=== PATIENT | female | born 1975 | race Caucasian/White ===

== ENCOUNTER 2017-08-29 09:54 | Outpatient (CLI) | payer MEDICAID ==
[~2017-08-29] VITALS: Ht 162.6 cm; Wt 82.0 kg
[2017-08-29 10:10] VITALS: BP 128/72; PULSE 65; Ht 162.6 cm; Wt 82.0 kg
[2017-08-29] MEDS ORDERED: PNV11TAB PO (10:12)
[2017-08-29] MEDS: LACTATED RINGER'S 1,000 ML IV SCH ×2 (10:25→13:57)
--- NOTE | 2017-08-29 14:30 | RADRPT ---
PROCEDURE: US OB. CLINICAL INDICATION: Low GAYLE TECHNIQUE: Transabdominal views of the pelvis are available for review. COMPARISON: None. FINDINGS: There is a single intrauterine gestation in a vertex position. The heart rate is present at 148 bpm. The placenta is left lateral in location. There is no evidence of placenta previa or a placental ab ruption. The GAYLE measures 14.2 cm. RPTAT: AA IMPRESSION: Normal GAYLE. Physician Kaylynn Date Time Electronically viewed and signed by Physician Kaylynn on 08/29/2017 14:30 RA/
--- NOTE | 2017-08-29 16:40 | CONS ---
Date/Time of Note Date/Time of Note DATE: 08/29/17 TIME: 16:31 Consultation Date/Type/Reason Admit Date/Time August 29, 2017 OB triage consult this patient is a 41 years old 5 para 3 1, with estimated date of confinement of September 14, 2017 which makes her 37 weeks and followed days today. She was basically referred to the OB triage due to oligohydramnios with amniotic fluid index level of 6.3 cm this morning On physical examination she is a well-developed well-nourished lady somewhat overweight body weight 82 kg her vital signs were basically normal with blood pressure 128/72 pulse rate 65 respiration 18 temperature 97.9. On physical examination she did not have any abnormal finding the abdomen was soft heart tone was normal heart tracing appears to be normal with no decelerations fairly good variability and accelerations no evidence of a true contractions no CVA tenderness Current Medications Medications (Trade) Dose Ordered Sig/Gabriel Route PRN Reason Start Time Stop Time Status Last Admin Dose Admin Lactated Ringer's (Lr) 1,000 ml @ 250 mls/hr Q4H IV 08/29/17 10:30 08/29/17 16:21 DC 08/29/17 13:57 250 MLS/HR Constitutional: chills, diaphoresis, disoriented, febrile, improved, no complaints, other, poor po, requiring IVF, requiring O2 Eyes: No discharge, No no complaints, No other, No pain, No redness, No visual change ENT: No bleeding, No congestion, No discharge, No dysphagia, No no complaints, No other, No pain, No sore throat Respiratory: No cough, No no complaints, No other, No pain, No pleuritic pain, No shortness of breath, No sputum, No wheezing Cardiovascular: No chest pain, No edema, No lightheadedness, No no complaints, No orthopenea, No other, No palpitations, No paroxysmal nocturnal dyspnea Gastrointestinal: No blood, No constipation, No decreased appetite, No diarrhea , No flatus, No nausea, No no complaints, No other, No pain, No passing stool, No vomiting Genitourinary: No bleeding, No discharge, No dysuria, No flank pain, No hematuria, No no complaints, No other Musculoskeletal: No back pain, No bone/joint pain, No neck pain, No no complaints, No other, No restricted range of motion, No swelling Skin: No bruising, No erythema, No laceration, No no complaints, No other, No pruritis, No rash, No skin lesions Neurologic: No confusion, No dizziness, No focal-weakness, No headache, No no complaints, No other, No seizure, No syncope Additional Comments In the hospital she was received IV hydration here volume was measured after hydration and the result was 14.2 cm With improved condition of the patient she was discharged home to rest and drink plenty of fluid and will return here tomorrow to repeat the GAYLE to make sure the baby is steadily in good condition Exam/Review of Systems Vital Signs Vitals Vital Signs Date Time Temp Pulse Resp B/P Pulse Ox O2 Delivery O2 Flow Rate FiO2 08/29/17 10:10 97.9 65 128/72 NICHOL REGALADO MD Aug 29, 2017 16:40
--- NOTE | 2017-08-29 16:49 | TRIAGE ---
OB Triage Datetime Report Generated by CPN: 08/29/2017 16:49 Datetime: 08/29/2017 15:46 Stage of : OB Triage Datetime: 08/29/2017 15:17 Labor Evaluation Frequency: 0 Monitor Mode: External Resting Tone Fortun[place]: Relaxed Heart Rate FHR Baseline Rate: 135 Monitor Mode: External US Variability: Moderate 6-25 bpm Accelerations: 10X10 Decelerations: None Category: Category I Pain Assessment Pain Scale: 0 Pain Presence: None/Denies Pain Type: N/A Pain Goal: 3 Pain Relief Measures: Comfort Measures Datetime: 08/29/2017 13:54 Labor Evaluation Frequency: X1 Monitor Mode: External Duration (sec)2399: 50 Pattern: Normal: <= 5 Contractions in 10 Minutes Resting Tone [place]: Relaxed Heart Rate FHR Baseline Rate: 135 Monitor Mode: External US Variability: Moderate 6-25 bpm Decelerations: None Category: Category I Pain Assessment Pain Scale: 0 Pain Presence: None/Denies Pain Type: N/A Pain Goal: 3 Pain Relief Measures: Comfort Measures Datetime: 08/29/2017 13:06 Labor Evaluation Frequency: occas Monitor Mode: External Duration (sec)2399: 40-60 Resting Tone [place]: Relaxed Heart Rate FHR Baseline Rate: 140 Monitor Mode: External US Variability: Moderate 6-25 bpm Accelerations: 10X10 Decelerations: None Category: Category I Pain Assessment Pain Scale: 2 Pain Presence: None/Denies Pain Type: N/A Pain Goal: 3 Pain Relief Measures: Comfort Measures Datetime: 08/29/2017 12:10 Labor Evaluation Frequency: OCCAS Monitor Mode: External Duration (sec)2399: 50-70 Pattern: Normal: <= 5 Contractions in 10 Minutes Resting Tone [place]: Relaxed Heart Rate FHR Baseline Rate: 135 Monitor Mode: External US Variability: Moderate 6-25 bpm Accelerations: 10X10 Decelerations: None Category: Category I Pain Assessment Pain Scale: 0 Pain Presence: None/Denies Pain Type: N/A Pain Goal: 3 Pain Relief Measures: Comfort Measures Datetime: 08/29/2017 11:04 Labor Evaluation Frequency: 5-8 Monitor Mode: External Duration (sec)2399: 50-80 Pattern: Normal: <= 5 Contractions in 10 Minutes Resting Tone [place]: Relaxed Heart Rate FHR Baseline Rate: 135 Monitor Mode: External US Variability: Moderate 6-25 bpm Accelerations: 10X10 Decelerations: None Category: Category I Pain Assessment Pain Scale: 2 Pain Presence: Intermittent Pain Type: Cramping Pain Location: Abdomen Pain Goal: 3 Pain Relief Measures: Comfort Measures Datetime: 08/29/2017 10:06 Stage of : OB Triage Assessment Type: Triage Maternal Assessment Level of Consciousness: Fully Conscious DTR's/Clonus: DTRs 2+; No Clonus Headache: Denies Blurred Vision: No Respiratory Effort: Unlabored; Regular Rhythm; Equal Expansion Breath Sounds, Left: Clear and Equal Breath Sounds, Right: Clear and Equal Nausea/Vomiting: Denies RUQ Epigastric Pain: Denies Facial Edema: None Temperature Route: Axillary Fall Risk Assessment History of Falling: (0) No Secondary Diagnosis: (0) No Ambulatory Aid: (0) Bedrest/Nurse Assist IV Therapy: (0) No Gait: (0) Normal/Bedrest/Immobile Mental Status: (0) Oriented to Own Ability Fall Score: 0 Fall Risk Score Definition: No Risk: No action required Labor Evaluation Frequency: 0 Monitor Mode: External Pattern: Normal: <= 5 Contractions in 10 Minutes Resting Tone [place]: Relaxed Heart Rate FHR Baseline Rate: 145 Monitor Mode: External US Variability: Moderate 6-25 bpm Accelerations: 10X10 Decelerations: None Pain Assessment Pain Scale: 0 Pain Presence: None/Denies Pain Type: N/A Pain Goal: 3 Pain Relief Measures: Comfort Measures Datetime: 08/29/2017 10:04 Time of Arrival: 08/29/2017 09:51 EGA: 37.5 Arrived By: Ambulatory Arrived From: Other Unit in Hospital Chief Complaint: FROM NST FOR IV HYDRATION GAYLE 6.3 Movement: Present Contractions: Denies/Absent Rupture of Membranes: Denies Vaginal Bleeding: None Vaginal Discharge: Denies Recent Sexual Intercouse: Denies Abdominal Trauma: Not Applicable Patient Complaints: None Time Provider Notified: 08/29/2017 15:50 Provider Notified: FABRICIO Initial Plan: monitor, iv hydration, repeat gayle
--- NOTE | 2017-08-30 11:12 | NSTRPT ---
NST Information Datetime Report Generated by CPN: 08/30/2017 11:12 Datetime: 08/29/2017 08:19 NST Information EGA: 37.5 Test Number: 4 Time on Monitor: 08/29/2017 08:53 Time off Monitor: 08/29/2017 09:21 NST Duration (Min): 28 Reason for NST: Other Reason for NST Other: AMA Test and Monitor Explained: Monitor Explained; Test Explained; Verbalized Understanding Pulse: 67 Resp: 16 SBP: 109 DBP: 60 Test Evaluation NST Interventions: Reposition Patient Patient States Movement: Present Contraction Frequency: X1, denies FHR Baseline : 140 Variability: Moderate 6-25bpm Accelerations: 15X15 Decelerations: None FHR Category: Category I NST Results: Reactive Comments: To Perinatology, GAYLE 6.5cm, cephalic EFW 3420gms (66%), AC 95% 919-Report to Dr Esquivel, recommends IV hydration. 924-Report called to Dr Corrigan, inc Dr Esquivel's recommendation. Orders received for IV Hydration and repeat GAYLE. POC explained to pt, states unders tanding and denies further questions at this time. Pt to Triage, with follow up NST appt for 09/02 at 0800 Electronically Signed By E-Signature: with User ID: [id number] Datetime: 08/27/2017 08:06 NST Information EGA: 37.3 Test Number: 3 Time on Monitor: 08/27/2017 08:29 Time off Monitor: 08/27/2017 09:01 NST Duration (Min): 32 Reason for NST: Other Reason for NST Other: AMA Test and Monitor Explained: Monitor Explained; Test Explained; Verbalized Understanding Pulse: 76 Resp: 18 SBP: 112 DBP: 64 Test Evaluation NST Interventions: Reposition Patient Patient States Movement: Present Contraction Frequency: X3(denies) FHR Baseline : 150 Variability: Moderate 6-25bpm Accelerations: 15X15 Decelerations: None FHR Category: Category I NST Results: Reactive Comments: To u/s. GAYLE 10.3cm. CEPHALIC. 0906-Pt home undelivered with labor precautions, kick count instructions reviewed and follo w up NST appt given. States understanding and denies further questions at this time. Electronically Signed By E-Signature: with User ID: [id number] Datetime: 08/23/2017 08:10 NST Information EGA: 36.6 NST Duration (Min): 37 Datetime: 08/20/2017 13:36 NST Information EGA: 36.3 Datetime: 08/20/2017 13:12 NST Duration (Min): 37
[2017-08-30] MEDS ORDERED: FERR256T PO (19:54)
== END 2017-08-29 16:21 | disposition home or self-care (01) ==
LOC: L-D 09:54 → OBT 09:54
PROVIDERS: ATTEND Obstetrics & Gynecology
DX: O41.03X0 Oligohydramnios, third trimester, not applicable or unspecified (principal); Z3A.37 37 weeks gestation of pregnancy
CPT/HCPCS: 36415; 76815; 96360; 96361; G0463; J7120

== ENCOUNTER 2017-08-30 19:21 | Outpatient (CLI) | payer MEDICAID ==
[~2017-08-30] VITALS: Ht 162.6 cm; Wt 83.0 kg
[~2017-08-30 19:21] MED LIST: PNV11TAB PO
[2017-08-30 19:49] VITALS: Ht 162.6 cm; Wt 83.0 kg
[2017-08-30 19:50] VITALS: BP 126/67; PULSE 88; RESP 18
[2017-08-30] MEDS ORDERED: FERR256T PO (19:54)
--- NOTE | 2017-08-30 21:29 | RADRPT ---
PROCEDURE: Obstetrical ultrasound greater than 14 weeks CLINICAL INDICATION: Low amniotic fluid index TECHNIQUE: Real time sonographic imaging of the gravid uterus is performed transabdominally and mu ltiple static sales scale and Doppler images are submitted for review as are measurements. The image s are reviewed on the PACS. COMPARISON: 08/29/2017 FINDINGS: There is a single living intrauterine gestation in cephalic presentation. The heart beat is estimated at 166 bpm.. Placenta is left lateral and grade 2. There is no evidence of placenta previa or abruption. The amniotic fluid index is normal estimated at 14.8 cm. RPTAT:HJJR IMPRESSION: 1. Single viable intrauterine gestation with the amniotic fluid index estimated at 14.8 cm, previous ly 14.2 cm on the study from 08/29/2017. 2. Cephalic presentation. Physician Swapna Date Time Electronically viewed and signed by Physician Swapna on 08/30/2017 21:29 /
--- NOTE | 2017-08-30 22:21 | PN ---
Triage Information Date/Time Reason for visit: Oligohydramnios Weeks of Gestation 37w 6d /Para Objective Vital Signs Date Time Temp Pulse Resp B/P Pulse Ox O2 Delivery O2 Flow Rate FiO2 08/30/17 19:50 98.2 88 18 126/67 97 Room Air Heart Rate Comments reactive Contractions: >10 Minutes Apart Results/Medications Imaging Results GAYLE 14.8cm Disposition: Discharge Assessment/Plan 41 y/o at 37w 6d with h/o oligohydramnios -biweekly NST/GAYLE as scheduled -f/u with OB JOSE LUIS ULLOA Aug 30, 2017 22:21
== END 2017-08-30 22:23 | disposition home or self-care (01) ==
LOC: OBT 19:21 → L-D 19:23 → OBT 22:23
PROVIDERS: ATTEND Obstetrics & Gynecology
DX: O41.03X0 Oligohydramnios, third trimester, not applicable or unspecified (principal); Z3A.37 37 weeks gestation of pregnancy
CPT/HCPCS: 76815

== ENCOUNTER 2017-09-09 10:38 | Inpatient (IN) | payer MEDICAID ==
[~2017-09-09] VITALS: Ht 162.6 cm; Wt 84.1 kg
[~2017-09-09 10:38] MED LIST changes: +FERR256T PO
[2017-09-09] MEDS ORDERED: LACTATED RINGER'S 1,000 ML IV SCH (11:09)
[2017-09-09 11:14] VITALS: BP 134/74; PULSE 70; RESP 18; Ht 162.6 cm; Wt 84.1 kg
[2017-09-09] MEDS ORDERED: AMPICILLIN 2 GM/NS (PMX) 100 ML IV ONE (11:30)
[2017-09-09] MEDS ORDERED: OXYTOCIN 30 UNITS/LR 500 ML IV SCH ×2 (11:30)
[2017-09-09] MEDS ORDERED: MISOPROSTOL 200 MCG TAB PR PRN (11:30)
[2017-09-09] MEDS ORDERED: CARBOPROST 250 MCG INJ IM PRN (11:30)
[2017-09-09] MEDS ORDERED: LIDOCAINE 1% (MPF) 30 ML INJ INJ PRN (11:30)
[2017-09-09] MEDS ORDERED: BUTORPHANOL 2 MG INJ IV PRN (11:30)
[2017-09-09] MEDS ORDERED: METHYLERGONOVINE 0.2 MG INJ IM PRN (11:30)
[2017-09-09] MEDS ORDERED: OXYTOCIN 30 UNITS/LR 500 ML IV PRN (11:30)
[2017-09-09] MEDS ORDERED: LACTATED RINGER'S 1,000 ML IV PRN (11:30)
[2017-09-09] MEDS ORDERED: IBUPROFEN 600 MG TAB PO PRN (11:30)
[2017-09-09] MEDS ORDERED: DINOPROSTONE 10 MG VAG SUPP VAG ONE (11:45)
[2017-09-09 11:55] LABS: ABNORMAL IP MESSAGE 1; BASOPHILS % 0.5 % (0.0-2.0); EOSINOPHILS # 0.1 10^3/ul (0.0-0.5); EOSINOPHILS % 1.8 % (0.0-7.0); HEMATOCRIT 37.1 % (37.0-47.0); HEMOGLOBIN 12.3 g/dl (12.0-16.0); LYMPHOCYTES % 25.1 % (15.0-51.0); MEAN CORPUSCULAR HEMOGLOBIN 31.5 pg (29.0-33.0); MEAN CORPUSCULAR HGB CONC 33.2 g/dl (32.0-37.0); MEAN CORPUSCULAR VOLUME 94.9 fl (82.0-101.0); MEAN PLATELET VOLUME 13.3 fl (7.4-10.4); MONOCYTE # 0.6 10^3/ul (0.3-0.9); MONOCYTES % 8.2 % (0.0-11.0); NEUTROPHILS % 63.5 % (39.0-77.0); PLATELET COUNT 160 10^3/UL (140-415); RED BLOOD COUNT 3.91 10^6/ul (4.20-5.40); RED CELL DISTRIBUTION WIDTH 13.2 % (11.5-14.5); WHITE BLOOD COUNT 7.8 10^3/ul (4.8-10.8)
[2017-09-09 11:56] LABS: POSITIVE DIFF @See below
[2017-09-09] MEDS ORDERED: MINERAL OIL LIGHT 10 ML VIAL TOP PRN (12:00)
[2017-09-09 12:23] LABS: INR 0.89; PT RATIO 0.9
[2017-09-09 12:24] LABS: PARTIAL THROMBOPLASTIN TIME 29.5 Sec (25.0-35.0)
[2017-09-09] MEDS ORDERED: AMPICILLIN 1 GM/NS (PMX) 50 ML IV SCH (15:30)
[2017-09-09] MEDS ORDERED: FENTAnyl 2MCG/ML-ROPIV 0.2% 100 ML ONE (16:10)
[2017-09-09] MEDS ORDERED: TERBUTALINE 1 ML ONE (16:47)
[2017-09-09] MEDS ORDERED: ONDANSETRON 4 MG INJ IV PRN ×2 (17:00→21:30)
[2017-09-09] MEDS ORDERED: NALOXONE (0.4 MG/ML) INJ IV PRN (17:00)
[2017-09-09] MEDS ORDERED: FENTAnyl 2MCG/ML-ROPIV 0.2% 100 ML BAG EPI SCH (17:00)
[2017-09-09] MEDS ORDERED: DIPHENHYDRAMINE 50 MG INJ IV PRN (17:00)
[2017-09-09] MEDS ORDERED: TERBUTALINE 1 MG/ML INJ SC ONE (17:00)
--- NOTE | 2017-09-09 19:13 | LDN ---
Date/Time of Note Date/Time of Note DATE: 09/09/17 TIME: 19:05 Delivery Summary Normal spontaneous vaginal delivery of a baby girl from OA position shoulders delivered without any difficulty rest of the baby's body followed placenta is spontaneous expulsion inspected complete, postdelivery inspection of vagina and cervix noted bleeding from the cervix section of the cervix seems there is a laceration 9:00 to 3 cm length which repaired with 2-0 chromic catgut after this repair bleeding subsided substantially approximately 5 minutes cervix was observed and no further bleeding uterus was firm and received 0.2 mg of Methergine IM also 5 100 Cytotec rectally estimated blood loss 350-400cc he also sustained very small first-degree laceration which repaired with 3-0 chromic catgut. Weeks of Gestation 39 weeks and 2 days Placenta Delivered: Spontaneously Meconium: none Episiotomy: No Laceration repair: First-degree perineal laceration, questionable cervical laceration at 9:00 location which repaired with 2-0 chromic Anesthesia type: Epidural Estimated blood loss: 400 Sponge & Needle done & correct: Yes All needle counts correct: Yes Any foreign bodies felt in the: No Problems: Delivery Information Sex Infant Sex: female Apgars 1 Minute: 9 5 Minute: 9 Suctioning Nose & mouth suctioned at apolinar: No Delee suction performed: No Umbilical Cord Umbilical cord with: 3 Vessels Cord presentations: nuchal cord Cord Blood was obtained: Yes FAITH POSEY MD Sep 09, 2017 19:13
--- NOTE | 2017-09-09 19:21 | HP ---
Date/Time of Note Date/Time of Note DATE: 09/09/17 TIME: 19:14 OB - History Hx of Present Free Text/Dictation 41 years old female [id number] admitted to [facility] at 39 weeks and 2 days in labor pelvic examination admission cervix 2- 3 cm dilated 70% effaced vertex at -2 station contractions every 3-5 minutes heart category 1 Chief Complaint: Labor contract Estimated Due Date: Sep 14, 2017 : 5 Para: 3 Care: Good Care Ultrasounds: Normal mid trimester US Obstetrical Complications: None Medical Complications: None Past Family/Social History * Past Medical, Surgical, Family and Obstetric Histories reviewed from chart. Rubella: immune RPR/VDRL: Negative GBS Status: Negative HBsAG: Negative OB Admission Exam Vital Signs Vital Signs Vital Signs Date Time Temp Pulse Resp B/P Pulse Ox O2 Delivery O2 Flow Rate FiO2 09/09/17 11:14 98.3 70 18 134/74 Room Air Physical Exam HEENT: WNL Heart: Rhythm Normal Abdomen: WNL Extremities: Normal Reflexes: Normal Cervical Dilatation: 2cm Effacement: 75% Station: -2 Membranes: Intact Accelerations: Accelerations Present Decelerations: No Decelerations Varibility: Moderate Contractions on Admission: < 5 Minutes Apart Intensity: Moderate Last 72 hours Lab Results CBC & BMP 09/09/17 11:19 OB Assessment/Plan Reason for admission: other (41 years old female [id number] admitted to the hospital at 39 weeks and 2 days in early labor pelvic examination on admission cervix 2-3 cm dilated 70% effaced vertex is -2) Plan: Other (41 years old female EDC 09/14/2017 admitted at 39 weeks and 2 days in labor pelvic examination on admission cervix 3 cm dilated 70 % effaced vertex is -2 station contraction every 3-5 minute heart category 1 patient is admitted and transferred to L&D expecting vaginal normal vaginal) FAITH POSEY MD Sep 09, 2017 19:21
[2017-09-09 20:50] VITALS: BP 115/70; PULSE 90; RESP 18
[2017-09-09] MEDS ORDERED: DIBUCAINE 1% 30 GM OINT PR PRN (21:30)
[2017-09-09] MEDS ORDERED: HYDROCODONE/APAP (5/325) TAB PO PRN (21:30)
[2017-09-09] MEDS ORDERED: OXYCODONE/ASPIRIN (4.88/325) TAB PO PRN (21:30)
[2017-09-09] MEDS ORDERED: BENZOCAINE 20% 56 ML SPRAY TOP PRN (21:30)
[2017-09-09] MEDS ORDERED: WITCH HAZEL/GLYCERIN PAD PR PRN (21:30)
[2017-09-09] MEDS ORDERED: LANOLIN 7 GM TUBE TOP PRN (21:30)
[2017-09-09] MEDS ORDERED: ACETAMINOPHEN 325 MG TAB PO PRN (21:30)
[2017-09-09] MEDS: OXYTOCIN 30 UNITS/LR 500 ML IV SCH (22:17)
[2017-09-10] VITALS: BP 113/62; PULSE 90; RESP 18
[2017-09-10] MEDS: IBUPROFEN 600 MG TAB PO SCH ×5 (00:01→23:36)
[2017-09-10] MEDS: OXYTOCIN 30 UNITS/LR 500 ML IV SCH (02:17)
[2017-09-10 04:20] VITALS: BP_SYST 61; PULSE 79; RESP 16
[2017-09-10 08:00] VITALS: BP 100/55; PULSE 74; RESP 16
[2017-09-10] MEDS: SENNA/DOCUSATE NA (8.6MG/50MG) TAB PO SCH ×2 (09:06→21:00)
[2017-09-10] MEDS: OXYCODONE/ASPIRIN (4.88/325) TAB PO PRN ×2 (10:48→16:14)
[2017-09-10 11:55] LABS: BASOPHILS % 0.2 % (0.0-2.0); EOSINOPHILS # 0.1 10^3/ul (0.0-0.5); EOSINOPHILS % 0.6 % (0.0-7.0); LYMPHOCYTES % 15.4 % (15.0-51.0); MEAN CORPUSCULAR HEMOGLOBIN 32.9 pg (29.0-33.0); MEAN CORPUSCULAR HGB CONC 34.5 g/dl (32.0-37.0); MEAN CORPUSCULAR VOLUME 95.4 fl (82.0-101.0); MEAN PLATELET VOLUME 12.2 fl (7.4-10.4); MONOCYTES % 8.1 % (0.0-11.0); NEUTROPHIL # 9.7 10^3/ul (1.6-7.5); NEUTROPHILS % 75.2 % (39.0-77.0); PLATELET COUNT 138 10^3/UL (140-415); RED BLOOD COUNT 3.04 10^6/ul (4.20-5.40); RED CELL DISTRIBUTION WIDTH 13.3 % (11.5-14.5); WHITE BLOOD COUNT 12.9 10^3/ul (4.8-10.8)
[2017-09-10 12:00] VITALS: BP 100/53; PULSE 74; RESP 16
--- NOTE | 2017-09-10 13:00 | QN ---
Documentation Comment Post normal vaginal delivery day 1 Afebrile Vital signs are stable Abdomen soft Uterus firm Lochia normal Extremity normal Plan of a.m. discharge discussed with the patient FAITH POSEY MD Sep 10, 2017 13:00
[2017-09-10 16:16] VITALS: BP 102/64; PULSE 84; RESP 16
[2017-09-10 20:00] VITALS: BP 105/62; PULSE 71; RESP 18
[2017-09-11] MEDS: IBUPROFEN 600 MG TAB PO SCH ×2 (06:08→12:02)
[2017-09-11 08:15] VITALS: BP 99/59; PULSE 80; RESP 17
[2017-09-11] MEDS ORDERED: MEASLES,MUMPS,RUBELLA VACCINE INJ SC* ONE (09:00)
[2017-09-11] MEDS: SENNA/DOCUSATE NA (8.6MG/50MG) TAB PO SCH (09:02)
[2017-09-11] MEDS: HYDROCODONE/APAP (5/325) TAB PO PRN ×2 (09:03→17:07)
[2017-09-11 16:00] VITALS: BP 109/70; PULSE 88; RESP 18
--- NOTE | 2017-09-11 16:44 | PD.PPDC ---
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
--- NOTE | 2017-09-11 16:47 | DS ---
Date/Time of Note Date/Time of Note DATE: 09/11/17 TIME: 16:44 Discharge Summary Admission/Discharge Info Admit Date/Time Sep 09, 2017 at 10:38 Discharge Date/Time September 11, 2017 at 1650 Discharge Diagnosis day 2 Patient Condition: Good Procedures Normal vaginal Hx of Present Illness Term in labor Hospital Course Satisfactory uneventful Home Meds Reported Medications Ferrous Gluconate (Iron) 256 Mg Tablet, 256 MG PO BID, TAB 08/30/17 [id number] ( 19) 1 Each Tablet, 1 TAB PO DAILY, TAB 08/29/17 Follow-up Plan instructions given recommended to make appointment to be seen at the clinic in 2 weeks Primary Care Provider [facility] Time spent on discharge: < 30 minutes FAITH POSEY MD Sep 11, 2017 16:47
--- NOTE | 2017-09-12 14:52 | NSTRPT ---
NST Information Datetime Report Generated by CPN: 09/12/2017 14:51 Datetime: 09/09/2017 08:18 NST Information EGA: 39.2 Time on Monitor: 09/09/2017 08:40 Time off Monitor: 09/09/2017 11:01 NST Duration (Min): 141 Test and Monitor Explained: Monitor Explained; Test Explained; Verbalized Understanding; Breastfee ding Info Given Pulse: 72 Resp: 18 SBP: 119 DBP: 67 Test Evaluation NST Interventions: None Patient States Movement: Present Contraction Frequency: IRREGULAR FHR Baseline : 130 Variability: Moderate 6-25bpm Accelerations: 15X15 Decelerations: Late FHR Category: Category II NST Results: Questionable Comments: To u/s, GAYLE 13.4, Cephalic 929-Report to Dr Esquivel, recommends induction of labor. 937-Dr Corrigan paged. 06-Report to Eufemia menezes RN, L_D/Charge. POC explained to pt states understanding and denies further questions at this kurtis e. 1005-Pt to L_D at this time. States understanding to go directly to hospital at this time. Electronically Signed By E-Signature: with User ID: [id number] Datetime: 09/05/2017 08:05 NST Information EGA: 38.5 NST Duration (Min): 30 Datetime: 09/02/2017 08:03 NST Information EGA: 38.2 NST Duration (Min): 24
== END 2017-09-11 18:07 | disposition home or self-care (01) | DRG 775 ==
LOC: L-D 10:38 → PP1 20:53 → EDSTATUS 09-14 10:05
PROVIDERS: ADMIT Obstetrics & Gynecology; ATTEND Obstetrics & Gynecology
PROC: 10E0XZZ Delivery of Products of Conception, External Approach (ICD-10-PCS; principal; 2017-09-09)
PROC: 0HQ9XZZ Repair Perineum Skin, External Approach (ICD-10-PCS; 2017-09-09)
PROC: 3E0P3VZ Introduction of Hormone into Female Reproductive, Percutaneous Approach (ICD-10-PCS; 2017-09-09)
DX: O69.81X0 Labor and delivery complicated by cord around neck, without compression, not applicable or unspecified (principal); O70.0 First degree perineal laceration during delivery; Z3A.39 39 weeks gestation of pregnancy; Z37.0 Single live birth
CPT/HCPCS: 62319; 85025; 85610; 85730; 86592; 86900; 86901; 87340; A4310; J2210; J2590; J3010; J3105; J7120

== ENCOUNTER 2018-01-24 09:54 | Day surgery (SDC) | END 2018-01-24 17:10 | disposition home or self-care (01) ==